=== PATIENT | female | born 1940 | race Two or more races ===

== ENCOUNTER 2019-05-22 05:00 | Day surgery (SDC) | payer OTHER ==
[~2019-05-22 05:00] MED LIST: ATIVAN0.5 M1 PO; LORATADINE10 M2 PO; MEMANTINE HCL10 MG PO; REMINYL8 MG PO
[2019-05-22] MEDS ORDERED: PERCOCET 5-3251 EACH PO (13:26)
== END 2019-05-22 14:55 | disposition home or self-care (01) ==
LOC: CIR.AMB 05:00
DX: K80.10 Calculus of gallbladder with chronic cholecystitis without obstruction (principal)